=== PATIENT | male | born 1950 | race Caucasian/White ===

== ENCOUNTER 2020-06-25 13:48 | Outpatient (REF) | payer MEDICARE, SELFPAY ==
[2020-06-25 15:11] LABS: Alanine Aminotransferase 49 U/L (0-40); Albumin Level 4.7 g/dL (3.5-5.0); Alkaline Phosphatase 83 U/L (39-117); Anion Gap 17 (12-20); Aspartate Amino Transferase 27 U/L (5-37); Bilirubin Total 0.4 mg/dL (0.0-1.0); Blood Urea Nitrogen 18 mg/dL (9-16); Calcium 9.4 mg/dL (8.4-10.2); Carbon Dioxide 28 mmol/L (22-29); Chloride 102 mmol/L (96-108); Estimated Glomerular Filt Rate > 60; Potassium 3.6 mmol/l (3.3-5.1); Sodium 143 mmol/L (135-145); Total Protein 7.1 g/dL (6.5-8.0)
[2020-06-25 15:14] LABS: Thyroid Stimulating Hormone 1.09 uIU/mL (0.32-4.0)
[2020-06-25 15:25] LABS: Glucose Random 50 mg/dL (60-115)
[2020-06-25 15:47] LABS: T4 Thyroxine 6.5 ug/dL (4.5-12.0)
[2020-06-25 16:02] LABS: Folate 12.3 ng/mL (> or = 4.0); Vitamin B12 621 pg/mL (200-900)
[2020-07-01 08:47] LABS: Triiodothyronine T3 Reverse 16 ng/dL (8-25)
== END 2020-06-25 13:49 | disposition home or self-care (01) ==
LOC: HO.LAB 13:48
PROVIDERS: PCP Internal Medicine; Visit Provider Psychiatry & Neurology Neurology
DX: G30.9 Alzheimer's disease, unspecified (principal)
CPT/HCPCS: 80053; 82607; 82746; 84436; 84443; 84482